=== PATIENT | female | born 1950 | race Caucasian/White ===

== ENCOUNTER 2016-09-02 01:48 | Emergency (ER) | payer MEDICARE, OTHER ==
--- NOTE | 2016-09-02 19:59 | ER ---
ADMIT: 09/02/2016 RM/LOC: ER [facility] MR#: [id number] [address] [id number] CASH WERNER [address] [place] [id number] Emergency Room Report SEX: F AGE: 66 : 1950 DATE: 09/02/2016 TIME: 01:48. Please refer to my T-sheet for complete H and P. HISTORY OF PRESENT ILLNESS: Briefly, the patient is a 66-year-old who actually had foot surgery on Wednesday, today is late Wednesday night or early Wednesday morning. She comes in the last 24 hours. She has been having a headache. She has nausea and vomiting. She thinks the oxycodone made her sick. She has tried Nucynta, but still is sick. Unable to keep things down. PHYSICAL EXAMINATION: VITAL SIGNS: Blood pressure 117/43, pulse 74, respirations 16, and temp 100.1. GENERAL: In no acute distress. HEENT: Grossly normal. LUNGS: Clear. HEART: Regular. ABDOMEN: Soft. SKIN: No rash. NEUROLOGIC: Alert and oriented. Nonfocal. EXTREMITIES: Her right foot is in a blue. EMERGENCY DEPARTMENT COURSE: I gave her a liter of normal saline bolus, Toradol 30 IV, and Reglan 10 IV. She was feeling much much better. I had a long discussion. She was ready for discharge. ASSESSMENT: 1. Headache. 2. Nausea and vomiting. 3. Status post foot surgery with medication intolerance. PLAN: Stop the oxycodone. Return if worse. Fluids. Use either Nucynta or Tylenol. I wrote her a script for Reglan in addition to her Zofran. Follow up with Sita. Stephen Marie MD/ carmen JOB #: [id number] CC: Gallo Dover MD, Attending Physician Josh Torres MD, Family Physician
== END 2016-09-02 04:05 | disposition home or self-care (01) ==
LOC: ER 01:48
DX: R51 Headache (principal); R11.2 Nausea with vomiting, unspecified; Z98.890 Other specified postprocedural states; Z90.49 Acquired absence of other specified parts of digestive tract; Z88.5 Allergy status to narcotic agent; Z88.1 Allergy status to other antibiotic agents